=== PATIENT | male | born 2000 | race Caucasian/White ===

== ENCOUNTER 2023-11-28 11:14 | Emergency (ER) | payer OTHER, SELFPAY ==
[2023-11-28 11:22] VITALS: BP 123/105; PULSE 87; RESP 16; TEMP 36.2; O2SAT 100
[2023-11-28 11:24] VITALS: BP 113/63
--- NOTE | 2023-11-28 11:46 | ED.URI ---
HPI - URI/Sore Throat General Chief Complaint: Upper Respiratory Infection Stated Complaint: Asthma Attack Symptoms Time Seen by Provider: 11/28/23 11:57 Source: patient and RN notes reviewed Mode of arrival: ambulatory Limitations: no limitations History of Present Illness HPI Narrative: 23-year-old male presents with concern cough, wheezing, nasal congestion, rhinorrhea, sore throat. Reports he has used either his inhaler and nebulizer 3 times since yesterday afternoon. MD elicited complaint: cough and nasal congestion Related Data Allergies Allergy/AdvReac Type Severity Reaction Status Date / Time Penicillins Allergy Mild Unknown Verified 11/28/23 11:18 amoxicillin Allergy Unknown Unknown Verified 11/28/23 11:18 peanut Allergy Unknown Unknown Verified 11/28/23 11:18 NUTS Allergy Severe Unknown Uncoded 11/28/23 11:18 COCONUTS Allergy Mild Unknown Uncoded 11/28/23 11:18 Sesame Seed Allergy Mild Unknown Uncoded 11/28/23 11:18 Review of Systems Review of Systems: CONSTITUTIONAL: Reports malaise. Denies chills, sweats, or fever. EYES: Denies visual changes, redness, or discharge. ENT: Reports rhinorrhea, congestion, and sore throat. CARDIOVASCULAR: Denies chest pain, palpitations, or edema. RESPIRATORY: Reports cough, dyspnea. GASTROINTESTINAL: Denies abdominal pain, nausea, vomiting, diarrhea SKIN: Denies rash or itching. MUSCULOSKELETAL: Denies myalgia. NEUROLOGIC: Denies headache. All systems reviewed & are unremarkable except as noted in HPI and below PMFSH Past Medical History Medical History (Updated 11/28/23 @ 12:03 by Vivian Landry NP) Anxiety Depression Left wrist sprain Wears glasses Social History Social History Smoking status: Never smoker Comments At time of signature, agree with nursing past medical, surgical, social and family history. There is no relevant family history pertinent to the presenting complaint Exam Narrative: GENERAL: Well-appearing, well-nourished, and in no acute distress. HEAD: Normocephalic EYES: PERRLA, conjunctivae clear ENT: Nares clear, clear discharge. Mucous membranes moist. TM pearly amador with sharp light reflex bilaterally; no tragal tenderness. Oropharynx not erythematous without lesions. Tonsils not enlarged and without exudate, no drooling, no hoarseness, no trismus, uvula midline. NECK: Supple. No lymphadenopathy CHEST: Clear to auscultation, breath sounds equal. No wheezing, rhonchi, rales, or stridor. No respiratory distress, speaks in full sentences. Cough and HEART: Regular rate and rhythm. No murmur heard. SKIN: Warm, dry, no rash. NEURO: Alert and oriented x3. PSYCH: Normal mood and affect Course Course Emergency Course: Patient is aware of diagnosis, understands and agrees to treatment plan. Anticipatory guidance given. Patient agrees to follow-up as directed and is aware of reasons to seek care at the emergency department. Portions of this record may have been created with voice recognition software Level of Care: Express Care Visit Vital Signs Vital signs: Vital Signs Temperature 97.1 F L 11/28/23 11:22 Pulse Rate 87 11/28/23 11:22 Respiratory Rate 16 11/28/23 11:22 Blood Pressure 123/105 H 11/28/23 11:22 Pulse Oximetry 100 11/28/23 11:22 Temperature 97.1 F L 11/28/23 11:22 Pulse Rate 87 11/28/23 11:22 Respiratory Rate 16 11/28/23 11:22 Blood Pressure 113/63 11/28/23 11:24 Pulse Oximetry 100 11/28/23 11:22 Reviewed. MDM - URI/Sore Throat MDM Narrative Medical decision making narrative: Differential diagnosis considered: Carballo virus, strep pharyngitis, allergic rhinitis, upper respiratory tract infection, sinusitis, rhinosinusitis, nasopharyngitis. viral pharyngitis, otitis media, otitis externa, pneumonia, bronchitis, viral cough syndrome, viral syndrome, and influenza. Exam findings show no acute concerns or changes; patient is non-toxic
[2023-11-28 12:00] LABS: EDINFLUASCREEN Negative; EDINFLUBSCREEN Negative
== END 2023-11-28 12:05 | disposition home or self-care (01) ==
PROVIDERS: Emergency Provider Nurse Practitioner
DX: J06.9 Acute upper respiratory infection, unspecified (principal); J45.909 Unspecified asthma, uncomplicated; Z20.822 Contact with and (suspected) exposure to COVID-19
CPT/HCPCS: 87426; 87804; 99213; G0463